=== PATIENT | female | born 1965 | race Caucasian/White ===

== ENCOUNTER 2023-08-27 20:16 | Emergency (ER) | payer OTHER, SELFPAY ==
[2023-08-27 20:44] VITALS: BP 131/92
--- NOTE | 2023-08-27 22:04 | ED.GENMED ---
History of Present Illness
General
Chief Complaint: Musculo-Skeletal Complaint
Time Seen by Provider: 08/27/23 21:34
History of Present Illness
History of Present Illness:
58-year-old female with history of lung cancer status post lobectomy in remission presenting to the emergency department with left thigh pain with radiation down her leg. Notes symptoms for the past 4 days. Denies known inciting injury. Reports
history of the back pain in the past. Denies numbness or tingling to her extremity. Pain radiates down her leg and stops at her knee. She is not taking Tylenol and Motrin for pain, last dose was at 130 this afternoon. She was able to see
physical therapy today, however was in too much pain to have a session. She was unable to see her primary, prompting her to come to the hospital today. Denies any significant swelling. Denies fever. Denies chest pain or difficulty breathing.
Denies any history of blood clots, recent surgery or travel. Denies additional acute medical complaints
Past History
Past History
ED Past Medical History: HTN and Other (HNP lumbar)
ED Past Surgical History: Orthopedic
Social History
Tobacco: Non-smoker
Personal:
Living: with family
Employment: Employed
Phy Exam
Physical Exam
Physical Exam:
General: Well-appearing, no clinical signs of dehydration, nontoxic and in no acute distress
HEENT: protecting airway
Neck: appears supple
CV: Normal heart rate, regular rhythm
Resp: No accessory muscle use, no increased work of breathing, lungs clear to auscultation bilaterally
Abd: non-distended
Extremities: No deformities, no swelling. Focal tenderness of the left thigh. No erythema or warmth. Distal sensation and pulses intact. Range of motion grossly intact. No tenderness to the midline spine or back.
Neuro: alert, no focal neurologic deficit
: deferred
Rectal: deferred
Psych: Normal affect
Skin: Intact
Course
Orders/Labs/Results
Orders:
Orders
08/27/23 21:59
Ketorolac [Toradol] 15 mg IM NOW STA
Lidocaine [Lidocaine 4% Patch] 1 patch TOPICAL NOW STA
Apply Lidocaine patch(s) to:: L-thigh
Vital Signs
Initial and Last Documented VS:
Initial Vital Signs
Temp Pulse Resp BP Pulse Ox
99.1 F 94 17 131/92 97
08/27/23 20:44 08/27/23 20:44 08/27/23 20:44 08/27/23 20:44 08/27/23 20:44
Last Documented Vital Signs
Temp Pulse Resp BP Pulse Ox
99.1 F 94 17 131/92 97
08/27/23 20:44 08/27/23 20:44 08/27/23 20:44 08/27/23 20:44 08/27/23 20:44
MDM/Problems Addressed
MDM/Problems Addressed:
58-year-old female with prior history of lung cancer status post lobectomy presenting for left-sided thigh pain with radiation to her knee for 4 days. Vital signs are normal.
On exam, patient well-appearing, nontoxic, resting comfortably. Symptom presentation and physical exam appears most consistent with sciatica. No report of trauma. No tenderness to the midline spine. No deformity or swelling to the extremity
without concern for fracture or malalignment. No neurovascular compromise. No infectious findings without erythema or warmth. Patient negative for Wells DVT. Will treat patient with Toradol and lidocaine patch. Do not feel patient requires any
advanced imaging. Will try Medrol Dosepak prescription for home therapy as well as continued high-dose ibuprofen. Will prescribe Percocet for severe pain. Once pain is better controlled, explained that patient should follow-up with physical
therapy to return for treatment. Otherwise feel stable for discharge. Strict return precautions were communicated and patient verbalized understanding
*Critical Care Note
Total Time (30-74mins, 75-104mins- exclusive of procedures): Not Applicable
ED Attending Note
-
Portions of this chart may have been created with voice recognition software.� Occasional wrong word or��sound alike� substitutions may have occurred due to the inherent limitations of voice recognition software.
Discharge Plan
Departure
Prescriptions:
No Action
hydrocodone-acetaminophen 1 TABLET tablet
1 tab PO Q4HPRN PRN (Reason: severe pain) Qty: 10 0RF
ibuprofen 600 MG tablet
600 mg PO Q6HPRN PRN (Reason: pain) Qty: 15 0RF
prednisone 50 MG tablet
50 mg PO Daily Qty: 4 0RF
diazepam [Valium] 5 MG tablet
5 mg PO Q8 Qty: 10 0RF
amoxicillin-pot clavulanate 1 TABLET tablet
1 tab PO BID Qty: 20 0RF
meclizine 25 MG tablet
25 mg PO Q8HPRN PRN (Reason: nausea or vertigo) Qty: 14 0RF
ondansetron 4 MG tablet,disintegrating
4 mg PO TIDPRN PRN (Reason: nausea/vomiting) Qty: 14 0RF
Interventions
Interventions:
*Risk Screen - Suicide Last Done: 08/27/23 21:20
*General Assessment Last Done: 08/27/23 21:20
*Neglect/Abuse Screening Last Done: 08/27/23 21:20
ED-Musculoskeletal Assessment Last Done: 08/27/23 21:20
Discharge Date and Time
Print Language: SWEDISH
[2023-08-27] MEDS: TORADOL 15 MG IM (22:09)
[2023-08-27] MEDS: LIDOCAINE 4% PATCH 1 PATCH TOPICAL (22:12)
== END 2023-08-27 22:42 | disposition home or self-care (01) ==
LOC: EMR 20:16
PROVIDERS: EMERGENCY PHYSICIAN Student in an Organized Health Care Education/Training Program; FAMILY PHYSICIAN Family Medicine
DX: M79.652 Pain in left thigh (principal); M79.662 Pain in left lower leg; I10 Essential (primary) hypertension; M51.26 Other intervertebral disc displacement, lumbar region; Z85.118 Personal history of other malignant neoplasm of bronchus and lung; Z90.2 Acquired absence of lung [part of]; Z88.2 Allergy status to sulfonamides; Z91.040 Latex allergy status
CPT/HCPCS: 99284; 96372

== ENCOUNTER 2025-01-08 19:48 | Emergency (ER) | payer OTHER, SELFPAY ==
[2025-01-08 19:49] VITALS: BP 124/83
[2025-01-08 20:06] LABS: Hematocrit 37.3 % (37.0-47.0); Hemoglobin 12.9 g/dL (12.0-16.0); Mean Corp Hgb Conc. 34.6 g/dL (33.0-37.0); Mean Corpuscular Volume 82.3 fL (81.0-99.0); Nucleated Red Blood Cells % 0 %; Platelet Count 206 10^3/uL (130-400); Red Cell Dist. Width 12.4 % (11.5-14.5)
[2025-01-08 20:18] LABS: COVID-19 Antigen Negative (Negative)
[2025-01-08 20:21] LABS: ALT (SGPT) 22 U/L (0-35); AST (SGOT) 29 U/L (14-36); Albumin 4.4 g/dl (3.5-5.0); Alkaline Phosphatase 73 U/L (38-126); Blood Urea Nitrogen 12 mg/dl (7-17); Calcium 8.9 mg/dl (8.4-10.2); Carbon Dioxide 25 mmol/L (22-30); Chloride 102 mmol/L (98-107); Glucose 115 mg/dl (70-99); Lipase 74 U/L (23-300); Potassium 3.7 mmol/L (3.5-5.1); Sodium 132 mmol/L (135-145); Total Protein 7.3 g/dl (6.3-8.2); eGFR > 60.00
[2025-01-08 22:08] VITALS: BMI 27.5
[2025-01-08 22:13] VITALS: BP 127/69
--- NOTE | 2025-01-08 22:28 | ED.GENMED ---
History of Present Illness
General
Chief Complaint: Headache
Source: patient
Exam Limitations: none
Time Seen by Provider: 01/08/25 22:17
Nursing documentation reviewed up to this point in time: agreed with
History of Present Illness
History of Present Illness:
59-year-old female with past medical history of lung cancer status post lobectomy and radiation currently in remission, MAC currently being treated, history of hypertension who presents to the emergency department for evaluation of flulike illness.
Patient reports onset of symptoms 3 days ago and they have been constant since that time. She reports headache is her primary complaint but she has associated fever and chills�Tmax 100.9 �F at home. She says she has had myalgias. She says she has
nausea and poor appetite. She says she has been taking Tylenol and ibuprofen but symptoms do not seem to be improving which prompted her to come to the ER for assessment. 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
Wednesday prior to onset of symptoms. She also makes note that she is on azithromycin and ethambutol for MAC and recently started rifabutin.
Past History
Past History
ED Past Medical History: HTN and Other (HNP lumbar)
ED Past Surgical History: Orthopedic
Social History
Tobacco: Non-smoker
Personal:
Living: with family
Employment: Employed
Review of Systems
Review of Systems
All Other Systems: ROS reviewed and negative except as documented in HPI and ROS
Constitutional: Reports fever, fatigue and chills
EENT: Denies sore throat or runny nose
Respiratory: Denies cough or trouble breathing
Cardiac: Denies chest pain
ABD/GI: Reports nausea and diarrhea; Denies abdominal pain or vomiting
: Denies flank pain
Musculoskeletal: Reports muscle pain; Denies neck pain
Neurological: Reports headache; Denies dizzy
Phy Exam
Physical Exam
Physical Exam:
General: Awake, alert, oriented x3; no acute distress
Head: Normocephalic, atraumatic
Eyes: Conjunctiva normal, EOMI, pupils equal round reactive to light bilaterally
Throat: Airway intact, handling secretions
Neck: Trachea midline, supple without meningismus
Lungs: Clear to auscultation bilaterally, no wheezing, rales, rhonchi
Heart: Tachycardia with regular rhythm, no murmurs, gallops, or rubs
Abd: Soft, non distended, nontender
Neuro: Cranial nerves intact, speech fluid, motor and sensory intact in all extremities
Skin: Warm and dry with no rash noted
Extremities: Warm and well-perfused
Scores
Heart Failure Risk
Heart Failure Risk Score: Not Applicable
Heart Score for Chest Pain Patients
STEMI patient?: Not applicable
Withdrawal Assessment of Alcohol
Withdrawal Assessment Completed?: Not applicable
Course
Orders/Labs/Results
Orders:
Orders
01/08/25 19:58
COVID-19 Antigen Urgent
Source: Nasal Swab
Complete Blood Count/With Diff Urgent
Comprehensive Metabolic Panel Urgent
Lipase Urgent
Lyme Progressive Urgent
Comment: ADD ON
Monotest Urgent
Comment: MONO ON
Influenza A+B Rapid Molecular Urgent
STEPAN Source: Nasal Swab
Specimen Description:
01/08/25 22:27
0.9% Sodium Chloride 1000 ml [Nss] 1,000 ml IV BOLUS
Ketorolac [Toradol] 15 mg IV NOW STA
01/08/25 22:29
Add On- LAB Urgent
Tests Added?: [place], Lymes
Abnormal Lab Results
01/08/25
19:58
WBC 4.1 L 10^3/uL
(4.8-10.8)
Absolute Lymphs (auto) 0.1 L 10^3/uL
(1.2-3.4)
Neutrophils % 88.7 H %
(42.2-75.2)
Lymphocytes % 2.5 L %
(20.5-51.1)
Sodium 132 L mmol/L
(135-145)
Glucose 115 H mg/dl
(70-99)
01/08/25 19:58
01/08/25 19:58
Vital Signs
Initial and Last Documented VS:
Initial Vital Signs
Temp Pulse Resp BP Pulse Ox
37.2 C 101 16 124/83 97
01/08/25 19:49 01/08/25 19:49 01/08/25 19:49 01/08/25 19:49 01/08/25 19:49
Last Documented Vital Signs
Temp Pulse Resp BP Pulse Ox
36.7 C 72 20 127/69 97
01/08/25 22:12 01/08/25 22:55 01/08/25 22:55 01/08/25 22:13 01/08/25 22:28
MDM/Problems Addressed
Differential Diagnosis Includes:
Viral syndrome including influenza, COVID, etc; ; medication side effect; brain mass considered less likely; very low clinical suspicion for meningitis although this is always a consideration with fever and headache among her symptoms�she has no
meningeal signs, no fever here, looks very comfortable has been symptomatic for days with benign exam making clinical suspicion extremely low
MDM/Problems Addressed:
59-year-old female with history as noted presents for evaluation of flulike illness�headache, myalgias, fevers over the past few days. Vitals and exam are as above. She had lab work in triage including a CBC and a CMP which showed no clinically
significant abnormalities. COVID and flu swabs were negative. Overall her clinical picture is most consistent with a viral illness. Must always consider meningitis with headache and fever but clinical suspicion very low as noted above. In my
judgment no indication for emergent head imaging and no indication for emergent lumbar puncture at this point. Will plan to treat symptomatically. I did add COVID and Lyme's test. Will reassess after the above.
Clinical reassessment after fluids and Toradol patient says she is feeling much better. Vital signs are normal. Exam reassuring. Overall suspect viral syndrome. Very low clinical suspicion for meningitis although I did speak to the patient about
the potential of a lumbar puncture in my judgment no indication at this point in time. I think she is stable for discharge and I did speak to her in detail about follow-up plan and return precautions. She indicated understanding and is comfortable
with this. All questions answered.
*Pulse Oximetry
SaO2: 97
Oxygen Mode of Delivery: Room air
Patient hypoxic: no (97%)
*Critical Care Note
Total Time (30-74mins, 75-104mins- exclusive of procedures): Not Applicable
Data Reviewed
Source: patient and spouse
Further Testing Considered But Not Given:
Considered CT head, considered lumbar puncture
ED Attending Note
-
Portions of this chart may have been created with voice recognition software.� Occasional wrong word or��sound alike� substitutions may have occurred due to the inherent limitations of voice recognition software.
Discharge Plan
Departure
Patient Disposition: Home (Routine Discharge)
Date of Disposition: 01/09/25
Time of Disposition: 00:07
Patient with high blood pressure during this ER visit?: No
Discharge Problem:
Headache, Viral syndrome
Instructions: Headache, Adult (DC)
Prescriptions:
New
methylprednisolone [Medrol (Atr)] 4 mg tablets,dose pack
See Rx Instructions .ROUTE .COMPLEX Qty: 21 0RF
Rx Instructions:
for 6 days
No Action
hydrocodone-acetaminophen 1 TABLET tablet
1 tab PO Q4HPRN PRN (Reason: severe pain) Qty: 10 0RF
ibuprofen 600 MG tablet
600 mg PO Q6HPRN PRN (Reason: pain) Qty: 15 0RF
prednisone 50 MG tablet
50 mg PO Daily Qty: 4 0RF
diazepam [Valium] 5 MG tablet
5 mg PO Q8 Qty: 10 0RF
amoxicillin-pot clavulanate 1 TABLET tablet
1 tab PO BID Qty: 20 0RF
meclizine 25 MG tablet
25 mg PO Q8HPRN PRN (Reason: nausea or vertigo) Qty: 14 0RF
ondansetron 4 MG tablet,disintegrating
4 mg PO TIDPRN PRN (Reason: nausea/vomiting) Qty: 14 0RF
methylprednisolone [Methylpred DP] 4 mg tablets,dose pack
See Rx Instructions .ROUTE .COMPLEX Qty: 21 0RF
Rx Instructions:
orally per package directions
lidocaine 5 % adhesive patch,medicated
1 patch topical DAILY Qty: 15 0RF
ibuprofen 600 mg tablet
600 mg PO Q8H PRN (Reason: Pain) 5 Days Qty: 20 0RF
oxycodone-acetaminophen [Percocet] 5-325 mg tablet
1 tab PO Q4HPRN PRN (Reason: pain) Qty: 7 0RF
Referrals:
Adair Raman MD [Family Provider, Family Practice] - Follow up in 5-7 days
Stand Alone Forms: Return to Work
Activity Restrictions/Additional Instructions:
Patient make sure you drink plenty of fluids. You should take Tylenol and ibuprofen for the next few days to help control your symptoms�you can take 500 mg of Tylenol every 6 hours and 400 mg of ibuprofen every 6 hours. We sent a Medrol pack to
your pharmacy which you should take for the next few days. If your symptoms are worsening or if they are not improving in the next 48 hours or she develop any new symptoms that are concerning please return to the ER as we discussed. Otherwise you
should follow-up with your primary doctor as we discussed.
Thank you for visiting the Emergency Department at [facility].
1. Please schedule a follow up appointment as directed. Call first thing tomorrow morning to make an appointment.
2. If indicated, please take your medications as instructed and indicated on discharge paperwork.
3. If any of your symptoms do not improve, or persist, or become more severe within 6-12 hours, please return to the emergency department for further care.
4. Please return to the emergency department if you develop a headache, neck pain/stiffness, fever greater than 100.4F, chest pain, shortness of breath, persistent nausea, vomiting, slurred speech, difficulty walking, numbness/tingling, weakness,
signs of infection or any other symptoms that are worrisome to you.
Please call [phone] if you have any questions.
Interventions
Interventions:
*Risk Screen - Suicide Last Done: 01/08/25 19:49
*General Assessment Last Done: 01/08/25 19:49
*Neglect/Abuse Screening Last Done: 01/08/25 19:49
*ED- Fall Risk Assessment Last Done: 01/08/25 22:08
*ED COVID-19 Vaccine History Last Done: 01/08/25 22:08
*ED Influenza Vaccine History Last Done: 01/08/25 22:08
ED- Neurological Assessment Last Done: 01/08/25 22:55
Discharge Date and Time
Print Language: KHMER
[2025-01-08] MEDS: NSS 1000 IV (22:46)
[2025-01-08] MEDS: TORADOL 15 MG IV (22:46)
[2025-01-09] MEDS: TYLENOL 1000 MG PO (00:54)
[2025-01-09 01:17] VITALS: BP 123/68
[2025-01-12 16:28] LABS: Lyme Antibody Screen, EIA Negative (Negative)
== END 2025-01-09 01:19 | disposition home or self-care (01) ==
LOC: EMR 19:48
PROVIDERS: Emergency Medicine; EMERGENCY PHYSICIAN Emergency Medicine; FAMILY PHYSICIAN Family Medicine
DX: B34.9 Viral infection, unspecified (principal); R51.9 Headache, unspecified; I10 Essential (primary) hypertension; Z85.118 Personal history of other malignant neoplasm of bronchus and lung; Z90.2 Acquired absence of lung [part of]
CPT/HCPCS: 99284; 96374; 96361; 80053; 83690; 85025; 86308; 86618; 87502; 87811